=== PATIENT | female | born 1940 ===

== ENCOUNTER → 2018-04-20 | Emergency (ER) | payer OTHER ==
[~2018-04-20] VITALS: Ht 157.5 cm; Wt 77.1 kg
[~2018-04-20] MED LIST: AMARYL; GLIMEPIRIDE2 MG; MECLIZINE HCL25 M1; NABUMETONE750 MG PO; NEURONTIN800 MG; VITAMIN D350000 UNIT; ZOCOR20 MG
== END | disposition home or self-care (01) ==
LOC: ER 20:49
DX: M17.11 Unilateral primary osteoarthritis, right knee (principal); M25.561 Pain in right knee

== ENCOUNTER 2019-04-26 11:05 | Emergency (ER) | payer OTHER ==
[~2019-04-26] VITALS: Ht 160 cm; Wt 81.6 kg
== END 2019-04-26 15:11 | disposition home or self-care (01) ==
LOC: ER 11:05
DX: J40 Bronchitis, not specified as acute or chronic (principal); J32.8 Other chronic sinusitis